=== PATIENT | male | born 1985 | race Caucasian/White ===

== ENCOUNTER → 2019-02-28 | Outpatient (CLI) | payer OTHER ==
[2019-02-28] MEDS: HOLD METFORMIN - RECEIVED CONTRAST 20 ML VIAL IV SCH (17:18)
[2019-02-28] MEDS: IOHEXOL 350 MG/ML 100 ML (OMNIPAQUE 350) VIAL IV ONE (17:18)
--- NOTE | 2019-02-28 17:25 | Diagnostic Imaging Report ---
PROCEDURE: CT neck soft tissue with contrast. TECHNIQUE: Multiple contiguous axial images were obtained through the neck after the administration of contrast. Auto Exposure Controls were utilized during the CT exam to meet ALARA standards for radiation dose reduction. INDICATION: Throat pain and discomfort. FINDINGS: The airway is patent throughout the neck. There is no evidence of parapharyngeal fluid collection. Prevertebral soft tissues are not thickened. Note is made of small mucous retention cyst or polyp in the medial wall of the left maxillary sinus. Parotid and submandibular salivary glands are unremarkable. Note is made of several enlarged lymph nodes in the left cervical chain with the largest in the left retromandibular region demonstrating long axis of 1.6 cm. Great vessels in the neck are unremarkable. There is no evidence of thyroid gland abnormality. There is straightening of cervical lordosis. IMPRESSION: 1. Mildly prominent deep cervical lymph nodes, most pronounced in the left retromandibular region. These may be reactive, however there is no evidence of parapharyngeal abscess or airway compromise. 2. Loss of cervical lordosis may be secondary to muscle spasm or positioning. Dictated by: Dictated on workstation # [id number]
== END ==
LOC: RAD 16:19
PROVIDERS: ATTEND Nurse Practitioner Family
DX: R59.0 Localized enlarged lymph nodes (principal); R07.0 Pain in throat
CPT/HCPCS: 70491